=== PATIENT | male | born 1995 | race Caucasian/White ===

== ENCOUNTER 2021-03-12 08:39 | Emergency (ER) | payer OTHER ==
[2021-03-12 08:46] VITALS: BP 127/77; PULSE 79; RESP 18; TEMP 97.9
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
== END 2021-03-12 09:20 | disposition home or self-care (01) ==
LOC: EC 08:39
DX: S02.5XXA Fracture of tooth (traumatic), initial encounter for closed fracture (principal); S60.414A Abrasion of right ring finger, initial encounter; F32.9 Major depressive disorder, single episode, unspecified; Y04.8XXA Assault by other bodily force, initial encounter; Y92.239 Unspecified place in hospital as the place of occurrence of the external cause; Y99.0 Civilian activity done for income or pay
CPT/HCPCS: 99283

== ENCOUNTER 2024-03-10 03:14 | Emergency (ER) | payer SELFPAY ==
[2024-03-10 04:15] VITALS: BP 135/77; PULSE 63; RESP 16; TEMP 98.5
== END 2024-03-10 03:56 | disposition home or self-care (01) ==
LOC: EC 03:14
DX: Z02.83 Encounter for blood-alcohol and blood-drug test (principal)
CPT/HCPCS: 99499